=== PATIENT | male | born 1985 ===

== ENCOUNTER 2018-02-04 06:23 | Emergency (ER) | payer OTHER ==
[2018-02-04 06:29] VITALS: TEMP 98.7
[2018-02-04] MEDS ORDERED: Sodium Chloride 0.9% 1,000 ML IV ONE (07:07)
[2018-02-04] MEDS ORDERED: Sodium Chloride 0.9% 1,000 ML ONE (07:34)
[2018-02-04 07:35] LABS: BASO # 0.1 K/uL (0.0-0.2); BASO % 0.7 % (0.0-2.0); HEMOGLOBIN 17.8 g/dL (12.0-18.0); LYMPH % 7.6 % (20.0-40.0); MEAN CELL VOLUME 87.6 fL (80.0-94.0); MEAN CORPUSCULAR HEMOGLOBIN 29.8 pg (27.0-31.0); MONO # 0.6 K/uL (0.0-0.8); MONO % 4.7 % (0.0-10.0); NEUT # 11.8 K/uL (1.8-7.0); PLATELET COUNT 309 K/uL (130-400); RBC 5.97 Mil/uL (4.40-5.90); RED CELL DISTRIBUTION WIDTH 13.8 % (11.5-14.5); WHITE BLOOD COUNT 13.6 K/uL (4.8-10.8)
[2018-02-04 08:11] LABS: ALB/GLOB RATIO 1.2 (1.0-2.1); ALBUMIN 4.8 g/dL (3.5-5.0); ALT/SGPT 327 U/L (21-72); AST/SGOT 264 U/L (17-59); BLOOD UREA NITROGEN 8 mg/dL (9-20); GFR AFRICAN-AMERICAN > 60; GFR NON-AFRICAN AMERICAN > 60; LIPASE 58 U/L (23-300)
[2018-02-04 08:29] LABS: BANDS 1 % (0-2); LYMPHOCYTE 7 % (20-40); MONOCYTE 5 % (0-10); NEUTROPHIL 87 % (50-75); PLATELET ESTIMATE NORMAL (NORMAL); TOTAL CELLS COUNTED 100
[2018-02-04 08:30] LABS: ANISOCYTOSIS SLIGHT; LARGE PLATELETS PRESENT
[2018-02-04 08:31] LABS: GIANT PLATELETS PRESENT; TOXIC GRANULATION PRESENT
--- NOTE | 2018-02-04 08:39 | RAD ---
HISTORY: SOB COMPARISON: None available. TECHNIQUE: Chest PA and lateral FINDINGS: Examination by habitus. LUNGS: Mild biapical pleural thickening. No focal consolidation. Please note that chest x-ray has limited sensitivity for the detection of pulmonary masses. PLEURA: No significant pleural effusion identified. No definite pneumothorax . CARDIOVASCULAR: The cardiomediastinal silhouette appears within normal limits of size. OSSEOUS STRUCTURES: No acute osseous abnormality identified. VISUALIZED UPPER ABDOMEN: Unremarkable. OTHER FINDINGS: None. IMPRESSION: Mild biapical pleural thickening. No focal consolidation identified.
[2018-02-04 09:56] VITALS: O2SAT 98
--- NOTE | 2018-02-04 10:11 | US ---
HISTORY: pain COMPARISON: None available. TECHNIQUE: Sonographic evaluation of the abdomen. FINDINGS: LIVER: Measures 18.5 cm in sagittal dimension. Echogenic liver may be seen in setting of hepatic parenchymal disease or fatty infiltration. No focal hepatic mass identified. The main portal vein appears patent with normal directional flow. No intrahepatic bile duct dilatation. GALLBLADDER: No gallstones. No gallbladder wall thickening. Negative sonographic Robles's sign as assessed by the mast maker. COMMON BILE DUCT: Measures 5 mm. PANCREAS: Not well visualized. RIGHT KIDNEY: Measures 10.8 x 4.6 x 5.2cm. No obstructing calculus or hydronephrosis identified. LEFT KIDNEY: Measures 11.4 x 5.5 x 4.6cm. No obstructing calculus or hydronephrosis identified. SPLEEN: Measures approximately 9.7 cm. AORTA: Limited views appear unremarkable. IVC: Limited views appear unremarkable. OTHER FINDINGS: None. IMPRESSION: Echogenic liver may be seen in setting of hepatic parenchymal disease or fatty infiltration. Borderline hepatomegaly.
--- NOTE | 2018-02-04 10:27 | C.PDOC ---
History Of Present Illness 32 year old male presents to ED for evaluation of RUQ abdominal pain that started early this morning. Pt states he went out to get drinks last night and started feeling pain when he went to bed early this morning. In 2010 pt drank alcohol daily for a year, and since then he has been drinking socially. Denies history of similar episode in the past. Denies n/v/d, fever, chest pain, shortness of breath, dysuria, hematuria, testicular pain or trauma. Time Seen by Provider: 02/04/18 07:02 Chief Complaint (Nursing): Abdominal Pain History Per: Patient History/Exam Limitations: no limitations Onset/Duration Of Symptoms: Hrs Current Symptoms Are (Timing): Still Present Location Of Pain/Discomfort: RUQ Quality Of Discomfort: "Pain" Associated Symptoms: denies: Nausea, Vomiting, Diarrhea, Loss Of Appetite, Back Pain, Chest Pain, Constipation, Urinary Symptoms Exacerbating Factors: None Alleviating Factors: None Recent travel outside of the [place]: No Additional History Per: Patient Past Medical History Reviewed: Historical Data, Nursing Documentation, Vital Signs Vital Signs: Last Vital Signs Temp 98.7 F 02/04/18 06:26 Pulse 98 H 02/04/18 12:11 Resp 17 02/04/18 12:11 BP 114/80 02/04/18 12:11 Pulse Ox 98 02/04/18 12:11 Family History: States: Unknown Family Hx - Social History Hx Alcohol Use: Yes Hx Substance Use: No Review Of Systems Except As Marked, All Systems Reviewed And Found Negative. Constitutional: Negative for: Fever, Chills Cardiovascular: Negative for: Chest Pain, Palpitations Respiratory: Negative for: Cough, Shortness of Breath Gastrointestinal: Positive for: Abdominal Pain. Negative for: Nausea, Vomiting , Diarrhea, Constipation Genitourinary: Negative for: Dysuria, Frequency, Hematuria Musculoskeletal: Negative for: Back Pain Physical Exam - Physical Exam Appears: Non-toxic, No Acute Distress Skin: Normal Color, Warm, Dry Head: Atraumatic, Normacephalic Eye(s): bilateral: Normal Inspection, EOMI Nose: Normal Oral Mucosa: Moist Neck: Normal ROM, Supple Chest: Symmetrical, No Deformity, Tenderness (reproducible pain to right inferior chest wall/ borderline RUQ) Cardiovascular: Rhythm Regular Respiratory: Normal Breath Sounds, No Rales, No Rhonchi, No Wheezing Gastrointestinal/Abdominal: Soft, Tenderness (RUQ), No Guarding, No Rebound Back: No CVA Tenderness, No Vertebral Tenderness Extremity: Normal ROM Neurological/Psych: Oriented x3, Normal Speech ED Course And Treatment - Laboratory Results Result Diagrams: 02/04/18 07:32 02/04/18 07:32 O2 Sat by Pulse Oximetry: 98 (RA) Pulse Ox Interpretation: Normal - CT Scan/US Abdomen US Other Rad Studies (CT/US): Read By Radiologist, Radiology Report Reviewed CT/US Interpretation: HISTORY: pain. COMPARISON: None available. TECHNIQUE: Sonographic evaluation of the abdomen. FINDINGS: LIVER: Measures 18.5 cm in sagittal dimension. Echogenic liver may be seen in setting of hepatic parenchymal disease or fatty infiltration. No focal hepatic mass identified. The main portal vein appears patent with normal directional flow. No intrahepatic bile duct dilatation. GALLBLADDER: No gallstones. No gallbladder wall thickening. Negative sonographic Robles's sign as assessed by the track laying equipment operator. COMMON BILE DUCT: Measures 5 mm. PANCREAS: Not well visualized. RIGHT KIDNEY: Measures 10.8 x 4.6 x 5.2cm. No obstructing calculus or hydronephrosis identified. LEFT KIDNEY: Measures 11.4 x 5.5 x 4.6cm. No obstructing calculus or hydronephrosis identified. SPLEEN: Measures approximately 9.7 cm. AORTA: Limited views appear unremarkable. IVC: Limited views appear unremarkable. OTHER FINDINGS: None. IMPRESSION: Echogenic liver may be seen in setting of hepatic parenchymal disease or fatty infiltration. Borderline hepatomegaly. Progress Note: Blood work, CXR ordered and reviewed. Pt was given Pepcid, Toradol, and IV fluids. Upon re-evaluation, pt was sleeping, upon awakening pt states pain persists. Abdomen ultrasound was ordered. On re-eval, pt is sleeping , states pain has improved. Pt was advised to avoid drinking alcohol, and to increase fluids intake. Pt is being discharged home and is instructed to follow up with PMD in 1-2 days for further evaluation. Return to ED if symptoms persist or worsen. Case was discussed with Dr. Sheehan who evaluated work up, and agrees with plan and discharge instructions. Disposition - Disposition Referrals: [facility] [Outside] Disposition: HOME/ ROUTINE Disposition Time: 10:25 Condition: STABLE Additional Instructions: Follow up with your primary medical doctor or clinic in 2-5 days for further evaluation. Take medications as prescribed. Return to the emergency department at any time if symptoms persist or worsen. Prescriptions: Famotidine [Pepcid] 20 mg PO BID #10 tab Instructions: Acute Abdomen (Belly Pain), Adult (DC) Forms: [employer] (Welsh) - Clinical Impression Clinical Impression: Abdominal pain - PA / RUBBER CURER / Resident Statement MD/DO has reviewed & agrees with the documentation as recorded. - Scribe Statement The provider has reviewed the documentation as recorded by the Scribe Christ Holguin All medical record entries made by the Araceliibbryn were at my direction and personally dictated by me. I have reviewed the chart and agree that the record accurately reflects my personal performance of the history, physical exam, medical decision making, and the department course for this patient. I have also personally directed, reviewed, and agree with the discharge instructions and disposition.
[2018-02-04 12:12] VITALS: BP 114/80; PULSE 98; RESP 17
--- NOTE | 2018-02-05 12:41 | CARD ---
APPROVED REPORT EKG Measurement Heart [id number] <Conclusion> Sinus tachycardia Possible Left atrial enlargement Borderline ECG
== END 2018-02-04 12:21 | disposition home or self-care (01) ==
LOC: C.ER 06:23
DX: R10.11 Right upper quadrant pain (principal)
CPT/HCPCS: 71046; 76700; 80053; 83690; 85025; 93005; 96361; 96374; 96375; 99284; J1885; J7040